=== PATIENT | female | born 1970 | race American Indian/Alaskan Native ===

== ENCOUNTER 2019-07-09 12:04 | Outpatient (CLI) | payer BC ==
--- NOTE | 2019-07-09 14:47 | Mammography Report ---
DIGITAL SCREENING MAMMOGRAM WITH CAD, 07/09/2019 INDICATION: Routine screening mammography. TECHNIQUE: Digital bilateral 2D mammography was obtained in the craniocaudal and mediolateral obliq ue projections. This examination was interpreted with the benefit of Computer-Aided Detection analysi s. COMPARISON: 01/01/2015 FINDINGS: Breast Density: The breasts are heterogeneously dense, which may obscure small masses. Left upper outer circumscribed masses are new and require additional imaging. The largest measures 3 cm on the MLO view. No architectural distortion or suspicious calcifications of the left breast. Ther e is no evidence of dominant mass, suspicious calcifications or architectural distortion in the right breast. IMPRESSION: Left masses requiring additional imaging. Recommend recall for left spot compression view s and targeted left breast ultrasound. Follow up recommendation: Special View: Spot Category 0: Incomplete. Needs additional imaging evaluation and/or prior mammograms for comparison. A "normal" or negative report should not discourage follow up or biopsy of a clinically significant f inding. A written summary of these findings will be mailed to the patient. The patient will be entered into a mammography reporting system which will generate a reminder letter for the patient's next appointmen t at the appropriate interval. The [employer] recommends yearly mammograms starting at age 40 and continuing as l rosmery as a woman is in good health. Breast MRI is recommended for women with an approximate 20-25% or greater lifetime risk of breast cancer, including women with a strong family history of breast or ova padmaja cancer or who have been treated for Hodgkin's disease. Signer Name: Rosendo Hanks MD Signed: 07/09/2019 2:43 PM Workstation Name: [id number]
== END 2019-07-09 12:05 | disposition home or self-care (01) ==
LOC: MAMMO 12:04
PROVIDERS: ATTEND Internal Medicine
DX: Z12.31 Encounter for screening mammogram for malignant neoplasm of breast (principal); N63.21 Unspecified lump in the left breast, upper outer quadrant
CPT/HCPCS: 77067

== ENCOUNTER 2019-07-25 12:49 | Outpatient (CLI) | payer BC ==
--- NOTE | 2019-07-25 14:37 | Ultrasound Report ---
LEFT DIGITAL DIAGNOSTIC MAMMOGRAM WITH CAD 07/25/2019 LEFT COMPLETE BREAST ULTRASOUND INDICATION: Recalled for evaluation of circumscribed masses. ABN MAMMO TECHNIQUE: Digital left mammographic imaging was performed. Spot compression views were obtained. Co mplete ultrasound of all four (4) quadrants was performed. This examination was interpreted with the benefit of Computer-Aided Detection (CAD) analysis. COMPARISON: 07/09/2019 FINDINGS: Breast Density: The breast is heterogeneously dense, which may obscure small masses. MAMMOGRAPHIC FINDINGS: Circumscribed masses persist in the outer breast on spot compression views. ULTRASOUND FINDINGS: Complete sonographic evaluation of all 4 quadrants and retroareolar region was p erformed. Ultrasound of the left breast demonstrated multiple benign cysts. The largest is at 2:00 7 cm from the nipple measuring 2.3 x 2.7 x 1.3 cm. It correlates with the largest mammographic mass. A benign cyst at 2:00 9 cm from the nipple measures 0.7 x 0.6 x 1.1 cm. A benign cyst at 1:00 6 cm fr om the nipple measures 1.6 x 1.0 x 1.0 cm. No solid mass or shadowing. IMPRESSION: Benign cysts left breast. Follow up recommendation: Routine yearly BI-RADS Category 2: Benign. A "normal" or negative report should not discourage follow up or biopsy of a clinically significant f inding. A written summary of these findings will be mailed to the patient. The patient will be entered into a mammography reporting system which will generate a reminder letter for the patient's next appointmen t at the appropriate interval. According to the [employer], yearly mammograms are recommended starting at age 40 and continuing as long as a woman is in good health. Breast MRI is recommended for women with an eulalia roximately 20-25% or greater lifetime risk of breast cancer, including women with a strong family his tory of breast or ovarian cancer and women who have been treated for Hodgkin's disease. Signer Name: Rosendo Hanks MD Signed: 07/25/2019 2:33 PM Workstation Name: [id number]
== END 2019-07-25 12:50 | disposition home or self-care (01) ==
LOC: MAMMO 12:49
PROVIDERS: ATTEND Internal Medicine
DX: N60.02 Solitary cyst of left breast (principal)

== ENCOUNTER 2020-08-05 07:55 | Outpatient (CLI) | payer BC ==
[2020-08-05 09:18] LABS: Blood Urea Nitrogen 20 mg/dL (7-17)
--- NOTE | 2020-08-05 10:13 | Cat Scan Report ---
CT PELVIS WITH CONTRAST HISTORY: Pelvic mass TECHNIQUE: Helical CT was performed following 100 cc of Omnipaque 300 intravenously. Sagittal and cor onal reformatted images. All CT scans at this location are performed using CT dose reduction for ALAReena A by means of automated exposure control. COMPARISON: None FINDINGS: The uterus is enlarged and lobulated with numerous fibroids. The uterus measures 12.9 x 9.7 x 10.0 cm. The largest fibroid in the posterior wall measures 7.7 cm. There are approximately 12 add itional fibroids measuring between 1 cm and 4 cm in diameter. Most of the fibroids mildly enhance. No calcific degeneration is appreciated. The endometrial stripe is not clearly identified secondary to the fibroid disease but does not appear to be thickened. The adnexa and bladder are unremarkable. There is moderate diverticulosis of the visualized colon. Normal appendix. The bladder is empty but u nremarkable. No evidence for adenopathy, free fluid, free air or inflammatory changes. The vascular structures and bony structures are unremarkable. IMPRESSION: Moderate to severe uterine fibroid disease as described above. Signer Name: Steven Siu Jr, MD Signed: 08/05/2020 10:09 AM Workstation Name: [id number]
== END 2020-08-05 07:56 | disposition home or self-care (01) ==
LOC: CT 07:55
PROVIDERS: ATTEND Obstetrics & Gynecology
DX: D25.9 Leiomyoma of uterus, unspecified (principal); K57.30 Diverticulosis of large intestine without perforation or abscess without bleeding; R19.07 Generalized intra-abdominal and pelvic swelling, mass and lump
CPT/HCPCS: 36415; 72193; 82565; 84520; Q9967

== ENCOUNTER 2020-08-26 09:42 | Outpatient (CLI) | payer BC ==
--- NOTE | 2020-08-26 10:47 | Mammography Report ---
DIGITAL SCREENING MAMMOGRAM WITH CAD, 08/26/2020 CLINICAL INFORMATION / INDICATION: Routine screening mammography. SCREENING MAMMO TECHNIQUE: Digital bilateral 2D mammography was obtained in the craniocaudal and mediolateral obliqu e projections. This examination was interpreted with the benefit of Computer-Aided Detection analysis . COMPARISON: 07/09/2019 FINDINGS: Breast Density: The breasts are heterogeneously dense, which may obscure small masses. No dominant mass, suspicious calcifications, or architectural distortion in either breast. Extensive nodularity most notably in the left breast again noted with a scar also in the left breast. Findings appear largely similar to the previous exam. IMPRESSION: No mammographic evidence of malignancy. Follow up recommendation: Routine yearly BI-RADS Category 2: Benign. A "normal" or negative report should not discourage follow up or biopsy of a clinically significant f inding. A written summary of these findings will be mailed to the patient. The patient will be entered into a mammography reporting system which will generate a reminder letter for the patient's next appointmen t at the appropriate interval. The [employer] recommends yearly mammograms starting at age 40 and continuing as l rosmery as a woman is in good health. Breast MRI is recommended for women with an approximate 20-25% or greater lifetime risk of breast cancer, including women with a strong family history of breast or ova padmaja cancer or who have been treated for Hodgkin's disease. Signer Name: Donald Melendez MD Signed: 08/26/2020 10:43 AM Workstation Name: [id number]
== END 2020-08-26 09:43 | disposition home or self-care (01) ==
LOC: SPVWC 09:42
PROVIDERS: ATTEND Surgery
DX: Z12.31 Encounter for screening mammogram for malignant neoplasm of breast (principal)
CPT/HCPCS: 77067

== ENCOUNTER 2020-09-11 08:07 | Outpatient (CLI) | payer BC ==
--- NOTE | 2020-09-11 10:13 | Ultrasound Report ---
Ultrasound-guided left breast cyst aspiration HISTORY: LUMP IN LEFT BREAST. COMPARISON: Mammogram from 08/26/2020 and previous ultrasound from 07/25/2019 PROCEDURE: The risks (including but not limited to bleeding and infection) and benefits were explain ed to the patient and informed consent was obtained. A time out procedure was performed. The proced ure site was prepped and draped in the usual sterile fashion and lidocaine was used for local anesthe haylie. Under direct ultrasound guidance, a 3.2 cm cyst along the outer left breast was targeted for aspirati on. A 16-gauge needle was advanced into the cyst and the cyst was completely collapsed. I aspirated a total of 8 mL of thin slightly cloudy yellow tinted fluid. Fluid was placed in a sterile cup and sen t to the lab for cytology evaluation. The patient tolerated the procedure well with no complications. IMPRESSION: Successful complete aspiration of the 3.2 cm left breast cyst. Signer Name: Donald Melendez MD Signed: 09/11/2020 10:08 AM Workstation Name: [id number]
== END 2020-09-11 08:08 | disposition home or self-care (01) ==
LOC: US 08:07
PROVIDERS: ATTEND Surgery
DX: N60.02 Solitary cyst of left breast (principal); N63.20 Unspecified lump in the left breast, unspecified quadrant
CPT/HCPCS: 76942

== ENCOUNTER 2020-10-07 06:20 | Observation (INO) | payer BC ==
--- NOTE | 2020-10-02 13:32 | Anesthesia Consultation ---
Anesthesia Consult and Med Hx Date of service: 10/07/20 - Airway Anesthetic Teeth Evaluation: Caps ROM Head & Neck: Adequate Mental/Hyoid Distance: Adequate Mallampati Class: Class II Intubation Access Assessment: Good - Pre-Operative Health Status ASA Pre-Surgery Classification: ASA3 Proposed Anesthetic Plan: General Nerve Block: TAP - Pulmonary Hx Smoking: Yes (Former) Hx Respiratory Symptoms: No (+2FS) - Cardiovascular System Hx Hypertension: Yes (+Cardiac clearance) - Central Nervous System Hx Back Pain: Yes (HNP-gets epidurals) Hx Psychiatric Problems: No - Gastrointestinal Hx Gastroesophageal Reflux Disease: Yes (IBS/diverticulosis; Was just hospitalized for diverticulitis) - Endocrine Hx Non-Insulin Dependent Diabetes: Yes (Diet-controlled) - Hematic Hx Sickle Cell Disease: No - Other Systems Hx Alcohol Use: Yes (Occas) Hx Cancer: No Hx Obesity: Yes - Additional Comments Anesthesia Medical History Comments: States she had awareness during BTL surgery
[2020-10-02 14:18] LABS: Hematocrit 33.9 % (30.3-42.9); Hemoglobin 11.3 gm/dl (10.1-14.3); Mean Corpuscular HGB Conc 33 % (30-34); Mean Corpuscular Volume 88 fl (79-97); Platelet Count 429 K/mm3 (140-440); Red Blood Count 3.87 M/mm3 (3.65-5.03)
[2020-10-02 14:41] LABS: BUN/Creatinine Ratio 10; Blood Urea Nitrogen 9 mg/dL (7-17); Calcium 8.9 mg/dL (8.4-10.2); Hemolysis Index 4
--- NOTE | 2020-10-02 14:44 | History and Physical Report ---
History of Present Illness Date of examination: 10/02/20 Chief complaint: This is a 49 year-old female with menorrhagia, pelvic pain and uterine fibroids who presents for definitive therapy in the form of hysterectomy and any other indicated procedures. History of present illness: Past History : 5 Term Births: 4 Living Children: 4 Aborta: 1 Elect. Ab: 1 # 1 Delivery date: 08/27/1988 Weeks Gestation: 40 Delivery type: Infant Sex: Male weight: 7'12 Comments: FD # 2 Delivery date: 08/08/1990 Weeks Gestation: 40 Delivery type: Sex: Male weight: 7'15 Comments: glucose issues # 3 Delivery date: 06/17/1993 Weeks Gestation: 42 Delivery type: Infant Sex: Male weight: 6'14 Comments: glucose issues # 4 Delivery date: 10/20/1997 Weeks Gestation: 40 Delivery type: Infant Sex: Female weight: 8'15 Comments: glucose issues [employer] History Operations: umbilical hernia repair cyst removed from the mons. not sure why. incision was left open (2008) colonoscopy 2013. for IBS and diverticulosis(2019) diverticulitis Tubal Ligation (1997) Abnormal PAP: positive Infection History HIV Risk Eval: no Personal hx. of genital herpes: yes Hx of STD: HSV Active Medications (reviewed today): VITAMIN D3 125 MCG (5000 UT) ORAL CAPSULE (CHOLECALCIFEROL) METRONIDAZOLE 500 MG ORAL TABLET (METRONIDAZOLE) 1 po bid AMOXICILLIN 500 MG ORAL CAPSULE (AMOXICILLIN) 1 po q 8hrs MIRALAX 17 GM ORAL PACKET (POLYETHYLENE GLYCOL 3350) PROTONIX 40 MG ORAL TABLET DELAYED RELEASE (PANTOPRAZOLE SODIUM) ACETAMINOPHEN-CODEINE TABLET (ACETAMINOPHEN-CODEINE TABS) AMLODIPINE BESYLATE TABLET (AMLODIPINE BESYLATE TABS) Current Allergies (reviewed today): LATEX GLOVES (DISPOSABLE GLOVES) (Critical) Past Medical History: Herniated lumbar disc receives epidurals twice year diverticulitis/divericulosis hx of hsv oral. IBS Diabetes diet controlled Hyperlipidemia Hypertension Vitamin D deficiency Past Surgical History: Reviewed history from 08/22/2020 and no changes required: umbilical hernia repair cyst removed from the mons. not sure why. incision was left open (2008) colonoscopy 2013. for IBS and diverticulosis(2019) diverticulitis(09/28/2020) Tubal Ligation (1997) Family History Summary: Reviewed history Last on 06/20/2020 and no changes required:10/02/2020 Other Family Member - Has No Family History of Uterine Cancer - Entered On: 08/28/2020 Other Family Member - Has No Family History of Small Bowel Cancer - Entered On: 08/28/2020 Other Family Member - Has No Family History of Stomach Cancer - Entered On: 08/28/2020 Other Family Member - Has No Family History of Pancreatic Cancer - Entered On: 08/28/2020 Other Family Member - Has No Family History of Ovarvian Cancer - Entered On: 08/28/2020 Other Family Member - Has No Family History of Kidney/Urinary Tract Cancer - Entered On: 08/28/2020 Other Family Member - Has No Family History of Spontaneous DVT-PE - Entered On: 08/28/2020 Other Family Member - Has No Family History of Colon Cancer - Entered On: 08/28/2020 Other Family Member - Has No Family History of Brain Cancer - Entered On: 08/28/2020 Other Family Member - Has No Family History of Breast Cancer - Entered On: 08/28/2020 Other Family Member - Has No Family History of Biliary Tract Cancer - Entered On: 08/28/2020 General Comments - FH: mother Hodgkins Family History of Diabetes mother and father, t2dm Family History of Hyperlipidemia Family History of Coronary Heart Disease sister age 51 mi son has epilepsy. multiple seizures age 19. Social History: Reviewed history from 06/20/2020 and no changes required: Patient is Smoking History: Patient has never smoked. Risk Factors: Smoked Tobacco Use: Never smoker Smokeless Tobacco Use: Never Drug use: no HIV high-risk behavior: no Alcohol use: yes Exercise: no Seatbelt use: 100 % Previous Tobacco Use: Signed On - 08/22/2020 Smoked Tobacco Use: Never smoker Smokeless Tobacco Use: Never Drug use: no HIV high-risk behavior: no Previous Alcohol Use: Signed On 08/22/2020 Alcohol use: yes Type: occ Drinks per day: social Exercise: no Seatbelt use: 100 % Family History Risk Factors: Family History of IA in females < 65 years old: yes Colonoscopy History: Date of Last Colonoscopy: 05/16/2020 Mammogram History: Date of Last Mammogram: 08/16/2019 PAP Smear History: Date of Last PAP Smear: 08/07/2019 Physical Exam Appearance: well developed, well nourished, no acute distress Other Exams Lungs: no rales, rhonchi, or wheezes Heart: S1, S2, no murmur, rub, or gallop Abdomen: soft, non-tender, no masses Genitourinary Exam Uterus: deferred for EUA Impression & Recommendations: Problem # 1: Menorrhagia (ICD-626.2) (RRW31-J75.0) Diagnosis explained to patient . Questions answered. Discussed with patient various medical and surgical therapies common for treatment: Hormonal/medical therapy or hysterectomy. She desire to proceed with hysterectomy Diagnosis explained to patient . Discussed with patient various medical, surgical and radiological therapies common for treatment including, but not limited to, myomectomy, hysterectomy and uterine artery embolization. Discussed risks and benefits of laparotomy, laparoscopy, vaginal and robotic assisted approaches for hysterectomies. Patient desires definitive treatment in the form of robot assisted laparoscopic total hysterectomy. The risks and alternatives for this surgery were reviewed with the patient. She was informed of the risks of the surgery including, but not limited to, pain, infection, bleeding possibly heavy enough to require a blood transfusion with associated risks of infections (hepatitis and HIV) and transfusion reactions, possible damage to bowel, bladder or ureter(s) and surrounding organs. . Patient understands that this surgery will make her sterile. Indications to abort a robotic/laparoscopic procedure and perform an open procedure were explained. She desires ovarian conservation. She was informed she may require surgery later to have her ovaries removed for a benign or mailgnant condition. Patient understands if her ovaries are removed she will become menopausal. Patient advised the small risks of spreading of malignancy if morcellation is required during the surgery patient understands and approves performing if necessary. Questions answered. Consent reviewed and signed The patient was instructed/informed the following: The normal length of hospital stay for this procedure. Nothing to eat or drink after midnight the evening prior to surgery. Clear liquids the day before surgery. Pre-op instruction sheets given. Wound care instructions given. Problem # 2: Fibroids of uterus; Intramural (ICD-218.1) (OQU71-I01.1) Diagnosis explained to patient . Questions answered. Discussed with patient michelle ious medical, surgical and radioloigal therapies common for treatment: Hormonal/medical therapy, fibroid embolization, removal of fibroids or hysterectomy Her updated medication list for this problem includes: Metronidazole 500 Mg Oral Tablet (Metronidazole) ..... 1 po bid Ibgard 90 Mg Oral Capsule Extended Release (Peppermint oil) Amoxicillin 500 Mg Oral Capsule (Amoxicillin) ..... 1 po q 8hrs Acetaminophen-codeine Tablet (Acetaminophen-codeine tabs Problem # 3: Pelvic and perineal pain (ICD-789.00) (ENW29-J94.2) It was extensively explained to her that her pain may persist, recur or change in nature due to the difficulty with diagnosis chronic pelvic pain or development of adhesions. She declined other treatment options at this time. Her updated medication list for this problem includes: Metronidazole 500 Mg Oral Tablet (Metronidazole) ..... 1 po bid Amoxicillin 500 Mg Oral Capsule (Amoxicillin) ..... 1 po q 8hrs Acetaminophen-codeine Tablet (Acetaminophen-codeine tabs) Medications Added to Medication List This Visit: 1) Vitamin D3 125 Mcg (5000 Ut) Oral Capsule (Cholecalciferol) 2) Metronidazole 500 Mg Oral Tablet (Metronidazole) .... 1 po bid 3) Vitamin D (cholecalciferol) 25 Mcg (1000 Ut) Oral Capsule (Cholecalciferol) 4) Ibgard 90 Mg Oral Capsule Extended Release (Peppermint oil) 5) Align Capsule (Probiotic product caps) 6) Amoxicillin 500 Mg Oral Capsule (Amoxicillin) .... 1 po q 8hrs 7) Pravastatin Sodium Tablet (Pravastatin sodium tabs) ] Medications and Allergies Allergies Allergy/AdvReac Type Severity Reaction Status Date / Time latex Allergy Rash, Verified 10/01/20 16:16 irritation Active Meds: Active Medications Acetaminophen (Acetaminophen 500 Mg Tab) 1,000 mg PO ONCE NR Stop: 10/07/20 20:00 Celecoxib (Celecoxib 200 Mg Cap) 400 mg PO PREOP NR Stop: 10/07/20 20:00 Fentanyl (Fentanyl 100 Mcg/2 Ml Inj) 100 mcg IV ONCE NR Stop: 10/07/20 20:00 Gabapentin (Gabapentin 300 Mg Cap) 600 mg PO PREOP NR Stop: 10/07/20 23:00 Lactated Ringer's (Lactated Ringers) 1,000 mls @ 125 mls/hr IV DIRECT VADIM Cefazolin Sodium (Ancef/Sterile Water 2 Gm/20 Ml) 2 gm in 20 mls @ 80 mls/hr IV PREOP NR; Protocol Stop: 10/07/20 20:00 Magnesium Oxide (Magnesium Oxide 400 Mg Tab) 400 mg PO ONCE NR Stop: 10/07/20 22:00 Midazolam HCl (Midazolam 2 Mg/2 Ml Inj) 2 mg IV PREOP NR Stop: 10/07/20 23:59 Assessment and Plan - Patient Problems (1) Menorrhagia Status: Acute (2) Fibroids Status: Acute (3) Pelvic pain Status: Acute (4) Hypertension Status: Chronic (5) Hyperlipidemia Status: Chronic (6) Vitamin D deficiency Status: Chronic (7) Diverticulosis Status: Chronic (8) Diabetes Status: Chronic (9) Lumbar herniated disc Status: Chronic
[2020-10-02 16:00] LABS: RBC Morphology Normal; Total Cells Counted 100
[~2020-10-07 06:20] MED LIST: ACETAMINOPHEN 500 MG TAB PO NR; CELECOXIB 200 MG CAP PO NR; GABAPENTIN 300 MG CAP PO NR; MAGNESIUM OXIDE 400 MG TAB PO NR; ceFAZolin/Water 2 GM/20 ML 2 GM/20 ML SYRINGE IV NR; fentaNYL 100 MCG/2 ML INJ IV NR
[2020-10-07] MEDS: LACTATED RINGERS 1,000 ML IV SCH ×2 (06:50→13:20)
[2020-10-07] MEDS ORDERED: metroNIDAZOLE/NS 500 MG/100 ML 500 MG/100 ML BAG IV NR (07:00)
[2020-10-07] MEDS ORDERED: BUPIVACAINE/PF (0.25%) 2.5 MG/ML 30 ML VIAL INFILTRATI ONE (07:08)
--- NOTE | 2020-10-07 07:08 | Anesthesia Day of Surgery ---
Anesthesia Day of Surgery - Day of Surgery Patient Examined: Yes Patient H&P Reviewed: Yes Patient is NPO: Yes
[2020-10-07] MEDS ORDERED: propofoL 200 MG/20 ML VIAL IV ONE (07:12)
[2020-10-07] MEDS ORDERED: ROCURONIUM 50 MG/5 ML INJ IV ONE (07:12)
[2020-10-07] MEDS ORDERED: LIDOCAINE PF 100 MG/5 ML (CARDIAC SYRINGE) IV ONE (07:12)
[2020-10-07] MEDS ORDERED: NEOMY 40 MG/POLYMYXIN B 200,000 UNITS/ML (GU) AMPULE IR ONE ×2 (07:13→08:40)
[2020-10-07] MEDS: MIDAZOLAM 2 MG/2 ML INJ IV NR ×2 (07:14→07:19)
[2020-10-07] MEDS ORDERED: fentaNYL 100 MCG/2 ML INJ ONE (07:15)
[2020-10-07] MEDS ORDERED: CALCIUM CHLORIDE 1,000 MG/10 ML SYRINGE IV ONE (07:18)
[2020-10-07] MEDS ORDERED: THROMBIN (RECOMBINANT) 5,000 UNIT VIAL TP ONE (07:18)
[2020-10-07] MEDS ORDERED: MIDAZOLAM 2 MG/2 ML INJ IV SCH (07:20)
[2020-10-07] MEDS ORDERED: HYDROmorphone 1 MG/1 ML INJ IV PRN (07:30)
[2020-10-07] MEDS ORDERED: ONDANSETRON 4 MG/2 ML INJ IV PRN ×2 (07:30→12:53)
[2020-10-07] MEDS ORDERED: ONDANSETRON 4 MG/2 ML INJ ONE (08:38)
[2020-10-07] MEDS ORDERED: dexAMETHasone 20 MG/5 ML VIAL ONE (08:38)
[2020-10-07] MEDS ORDERED: SODIUM CHLORIDE 0.9% IRRIG SOLN 2000 ML IR ONE (08:40)
[2020-10-07] MEDS ORDERED: ePHEDrine SULFATE 50 MG/1 ML INJ ONE (08:43)
[2020-10-07] MEDS ORDERED: LACTATED RINGERS 1,000 ML ONE (09:02)
[2020-10-07] MEDS ORDERED: GLYCOPYRROLATE 0.4 MG/2 ML INJ ONE (09:54)
[2020-10-07] MEDS ORDERED: KETOROLAC 30 MG/1 ML INJ ONE (09:54)
[2020-10-07] MEDS ORDERED: NEOSTIGMINE 10MG/10 ML INJ MDV ONE (09:54)
[2020-10-07] MEDS ORDERED: PHENYLEPHRINE/NS 1,000 MCG/10 ML SYRINGE (OR USE) IV ONE (10:00)
[2020-10-07] MEDS: HYDROmorphone 1 MG/1 ML INJ IV PRN ×4 (10:40→12:05)
--- NOTE | 2020-10-07 12:26 | Operative Report ---
Operative Report Operative Report: Date: 10/07/2020 Preoperative diagnosis: 1. Menorrhagia 2. Uterine fibroid 3. Body mass index of 38.7 kg/m 4. Pelvic pain Postoperative diagnosis: 1. Menorrhagia 2. Uterine fibroid 3. Body mass index of 38.7 kg/m 4. Pelvic pain Procedure: 1. Robotic-assisted laparoscopic total hysterectomy with bilateral salpingectomy Surgeon: Eleanor Aguilar MD Pilot: Alayna Lopez Anesthesiologist: Dr. Howe Anesthesia: General endotracheal anesthesia EBL: Approximately 100 mL Findings: EUA: Uterus palpated to approximately 15 weeks. Uterus was sounded to 12 cm. Grossly normal tubes and ovaries. Left ovary was adhered to the posterior aspect of the uterus. Procedure: Patient was taken to the OR and placed in the supine position. General anesthesia was induced and an oral gastric tube was placed. Her neck and head were placed on foam support. Foam eye protection with goggles were secured in place. Then foam face protection was placed and secured. Foam shoulder pads were then positioned on her shoulders for Trendelenburg positi oning. She was then placed in dorsolithotomy position. Exam under anesthesia as above. The abdomen and vagina were then prepped and draped in the usual sterile fashion. Timeout was performed. A Kirkland catheter was inserted into the bladder with drainage of clear yellow urine. The operative speculum was introduced into the vagina and the anterior lip of the cervix was grasped with single-toothed tenaculum. The uterus was sounded to 12 cm. The cervix was progressively dilated to allow the large V care uterine manipulator. The bulb of the manipulator was inflated and the speculum and tenaculum were removed. The cup of the manipulator was placed around the cervix and the blue occluder of the manipulator was properly positioned in the vagina and secured. A laparotomy sponge that was saturated with a solution of polymyxin and saline was placed in the vagina to ensure pneumoperitoneum. Sterile gloves were placed and attention was turned to the abdomen. A 10 mm midline vertical supraumbilical incision was made approximately 10 cm superior to the elevated fundus of the uterus. A 10-12 mm trocar with the laparoscope and camera attached was introduced through this incision under direct visualization. The abdomen was insufflated. No obvious bowel, bladder, ureteral, or major vascular injury was noted. The patient was then placed in steep Trendelenburg position and the following trochars were placed under direct visualization: 8 mm robotic trochars were placed through incisions made in the bilateral midclavicular lower abdominal region approximately 10 cm lateral to the midline incision, and a 5 mm trocar was placed through an incision made in the right lower lateral pelvis. The 10 mm laparoscope was then replaced by a 5 mm laparoscope that was placed through the 5 millimeter lateral trocar. The 12 mm trocar was then removed and the Willem Tate fascial closure device was placed through the incision and a 0 Vicryl was placed through the fascia. Once the suture was secured the 12 mm trocar was reintroduced. Once the trochars were in the appropriate positions, the da Erik robot system was engaged. The EndoShears and bipolar device was placed through the 8 mm trochars and positioned then attention was turned to the console. The uterus was elevated and bilateral salpingectomy was performed. Each tube was removed through the 5 mm trocar and sent to pathology in separate containers. The left ovary was gently released from the anterior fundal lateral aspect of the uterus. Then the utero-ovarian ligaments were clamped. cauterized and incised bilaterally using 30 W of energy. Then the round ligaments were clamped, cauterized and incised bilaterally. The anterior leaf of the broad ligament was elevated and with careful blunt and sharp dissection the bladder flap was created and dissected away from the lower uterine segment and cervix. The posterior leaf of the broad ligament was dissected away from the uterine vessels. The cup of the uterine manipulator was palpated both anteriorly and posteriorly. The bladder was further dissected away from the lower uterine segment. The uterine vessels were then clamped and cauterized bilaterally. Blanching of the uterus was then noted. Attention was again turned to the anterior lower uterine segment and the bladder was confirmed to be away from the operative field. Then attention was turned again to the posterior where the cup of the manipulator was palpated and a colpotomy was performed down to the cup. The incision was extended in the lateral position to the uterine vessels that were again clamped and cauterized and incised. Continuing along the cup of the manipulator in a circumferential manner the colpotomy was completed. Once the uterus cervix were released, the large posterior fibroid was removed to assist with removing the virus from the vagina. The uterus,cervix and fibroid were then removed through the vaginal incision. The pelvis was irrigated with warm normal saline. A moist laparotomy sponge was placed in the vagina to maintain pneumoperitoneum. The vagina cuff was reapproximated using V LOC 180 suture. Then a J stitch was performed to secure the suture. Again the pelvis was copiously irrigated with polymixin in warm normal saline. The laparotomy sponge was removed from the vagina. No obvious evidence of bowel, bladder, ureteral, or major vascular injury was noted. Winston was applied to ensure hemostasis.. Then the instruments were removed, the robot was disengaged. The 12 mm trocar was removed and the fascia was ligated with the 0 Vicryl suture that was placed at the beginning of the procedure. The patient was taken out of Trendelenburg position, the abdomen was desufflated, the remaining trochars were removed. Incisions were reapproximated using 4-0 Monocryl in a subcuticular manner. Surgiseal was placed over the other incisions. The vagina was then inspected, the cuff was palpated to be intact and no bleeding was noted and clear yellow urine was draining into the Kirkland bag from the bladder at the end of the procedure. Counts were correct 3. Patient was taken to recovery room in stable condition.
[2020-10-07] MEDS ORDERED: ONDANSETRON 4 MG ODT TAB PO PRN (12:53)
[2020-10-07] MEDS ORDERED: MORPHINE 2 MG/1 ML INJ IV PRN (12:53)
[2020-10-07] MEDS ORDERED: HYDROcodone/ACETAMINOPHEN 5-325 MG TAB PO PRN (12:53)
[2020-10-07] MEDS ORDERED: METOCLOPRAMIDE 10 MG/2 ML INJ IV PRN (12:53)
[2020-10-07] MEDS ORDERED: DEXTROSE 50% IN WATER (25GM) 50 ML SYRINGE IV PRN (13:00)
--- NOTE | 2020-10-07 14:06 | Post Anesthesia Evaluation ---
- Post Anesthesia Evaluation Patient Participated: Yes Airway Patent: Yes Stable Respiratory Function: Yes Nausea/Vomiting: No Temp > 96.8F: Yes Pain Manageable: Yes (Pt was having preoperative diverticul. pain) Adequeate Hydration: Yes Anesthesia Complications: No Block Receding Appropriately: Yes Patient on Ventilator: No Other Comments: Loose tooth intact
[2020-10-07] MEDS: ACETAMINOPHEN 325 MG TAB PO SCH ×2 (14:48→21:57)
[2020-10-07] MEDS: amLODIPine 5 MG TAB PO SCH (14:49)
[2020-10-07] MEDS: ceFAZolin/NS 1 GM/50 ML 1 GM/50 ML BAG IV SCH ×2 (15:00→21:54)
[2020-10-07] MEDS: KETOROLAC 30 MG/1 ML INJ IV SCH ×2 (15:53→21:56)
[2020-10-07] MEDS: INSULIN REGULAR, HUMAN 100 UNITS/1 ML SUB-Q SCH ×2 (17:30→22:07)
--- NOTE | 2020-10-07 18:46 | Progress Note ---
Assessment and Plan Patient resting in bed, no complaints. Clear yellow urine draining into catheter. Operative findings and procedure explained. Post op plan of care discussed. Questions were encouraged and answered. She voiced understanding and agrees with POC - Patient Problems (1) History of robot-assisted laparoscopic hysterectomy Current Visit: Yes Status: Acute (2) Menorrhagia Current Visit: No Status: Resolved (3) Fibroids Current Visit: No Status: Resolved (4) Pelvic pain Current Visit: No Status: Resolved (5) Hypertension Current Visit: No Status: Chronic (6) Hyperlipidemia Current Visit: No Status: Chronic (7) Vitamin D deficiency Current Visit: No Status: Chronic (8) Diverticulosis Current Visit: No Status: Chronic (9) Diabetes Current Visit: No Status: Chronic (10) Lumbar herniated disc Current Visit: No Status: Chronic Subjective Date of service: 10/07/20 Patient Reports: Positive: no new complaints Objective Vital Signs - 12hr 10/07/20 10/07/20 10/07/20 07:13 07:18 07:23 Temperature Pulse Rate 81 74 76 Respiratory 16 17 14 Rate Blood Pressure 132/78 138/81 144/82 O2 Sat by Pulse 100 100 100 Oximetry 10/07/20 10/07/20 10/07/20 07:28 10:20 10:25 Temperature 97.2 F L Pulse Rate 75 86 76 Respiratory 16 27 H 18 Rate Blood Pressure 142/78 136/78 121/75 O2 Sat by Pulse 100 100 100 Oximetry 10/07/20 10/07/20 10/07/20 10:30 10:35 10:40 Temperature Pulse Rate 80 71 Respiratory 20 18 16 Rate Blood Pressure 124/74 136/74 O2 Sat by Pulse 100 100 Oximetry 10/07/20 10/07/20 10/07/20 10:50 10:51 10:52 Temperature 98.1 F Pulse Rate 70 Respiratory 16 17 22 Rate Blood Pressure 152/81 O2 Sat by Pulse 100 Oximetry 10/07/20 10/07/20 10/07/20 11:12 12:05 12:25 Temperature Pulse Rate Respiratory 15 16 16 Rate Blood Pressure O2 Sat by Pulse Oximetry 10/07/20 10/07/20 10/07/20 13:06 14:49 16:05 Temperature 97.5 F L 97.7 F Pulse Rate 65 65 82 Respiratory 18 18 Rate Blood Pressure 141/76 141/76 123/70 O2 Sat by Pulse 100 99 Oximetry - General physical appearance no distress - Respiratory normal expansion, normal respiratory effort, clear to auscultation - Abdomen soft, bowel sounds normal, surgical scars (C/D/I) - Psychiatric oriented to time, oriented to person, oriented to place, speech is normal, memory intact - Labs 10/02/20 13:00 10/02/20 06:00
[2020-10-07] MEDS: FAMOTIDINE 20 MG/2 ML INJ IV SCH (21:56)
[2020-10-07] MEDS ORDERED: PRAVASTATIN 40 MG TAB PO SCH (22:00)
[2020-10-07] MEDS: metroNIDAZOLE/NS 500 MG/100 ML 500 MG/100 ML BAG IV SCH (22:51)
[2020-10-08] MEDS: ACETAMINOPHEN 325 MG TAB PO SCH ×2 (00:55→06:37)
[2020-10-08] MEDS: INSULIN REGULAR, HUMAN 100 UNITS/1 ML SUB-Q SCH ×3 (00:55→11:53)
[2020-10-08] MEDS: LACTATED RINGERS 1,000 ML IV SCH ×2 (02:36→09:13)
[2020-10-08 04:14] LABS: Hematocrit 27.1 % (30.3-42.9)
[2020-10-08 04:34] LABS: BUN/Creatinine Ratio 9; Blood Urea Nitrogen 7 mg/dL (7-17); Hemolysis Index 0
[2020-10-08] MEDS: KETOROLAC 30 MG/1 ML INJ IV SCH (05:51)
[2020-10-08] MEDS: FAMOTIDINE 20 MG/2 ML INJ IV SCH (08:44)
[2020-10-08] MEDS: amLODIPine 5 MG TAB PO SCH (09:05)
--- NOTE | 2020-10-08 09:42 | Discharge Summary ---
Providers - Providers Date of Admission: 10/07/20 11:30 Date of discharge: 10/08/20 Attending physician: PINKY RODRIGUEZ Primary care physician: PAULINE MONTOYA Hospitalization Condition: Good Procedures: RALTH, (B) salpingectomy Hospital course: This is a 49-year-old female status post robotic assisted laparoscopic total hysterectomy with bilateral salpingectomy. Postoperative course has been unremarkable. She is discharged home at this time. Disposition: DC- TO HOME OR SELFCARE Final Discharge Diagnosis (Prints w/discharge instructions): s/p hysterectomy with bilateral salpingectomy - Discharge Diagnoses (1) History of robot-assisted laparoscopic hysterectomy Status: Acute (2) Menorrhagia Status: Resolved (3) Fibroids Status: Resolved (4) Pelvic pain Status: Resolved (5) Hypertension Status: Chronic (6) Hyperlipidemia Status: Chronic (7) Vitamin D deficiency Status: Chronic (8) Diverticulosis Status: Chronic (9) Diabetes Status: Chronic (10) Lumbar herniated disc Status: Chronic Core Measure Documentation - Palliative Care Palliative Care/ Comfort Measures: Not Applicable - Core Measures Any of the following diagnoses?: none Exam - Constitutional Vitals: Temp Pulse Resp BP Pulse Ox 98.0 F 62 12 115/60 100 10/08/20 07:30 10/08/20 09:05 10/08/20 07:30 10/08/20 09:05 10/08/20 07:30 General appearance: Present: no acute distress - Neck Neck: Present: supple - Respiratory Respiratory effort: normal Respiratory: bilateral: CTA - Cardiovascular Rhythm: regular - Extremities Extremities: no ischemia, No edema - Abdominal General gastrointestinal: Present: soft, non-tender, non-distended, normal bowel sounds Female genitourinary: Present: deferred - Integumentary Integumentary: Present: clear, warm, dry (Incisions:C/D/I) - Psychiatric Psychiatric: appropriate mood/affect, intact judgment & insight, memory intact, cooperative Plan Activity: other (No sex and no driving. Ambulate approximately [place] her property daily. Void frequently to avoid pressure on the vaginal cuff. Use your incentive spirometer every hour while awake.) Weight Bearing Status: Full Weight Bearing Diet: low fat, low cholesterol, low salt, diabetic (Eat small meals frequently. Drink approximately 90 ounces of water a day.) Wound: open to air, keep clean and dry Special Instructions: no heavy lifting (Greater than 15 pounds) Follow up with: PAULINE MONTOYA MD [Primary Care Provider] - 7 Days PINKY RODRIGUEZ MD [Staff Physician] - (As scheduled) Prescriptions: Ferrous Sulfate [Ferrous Sulfate 324 MG] 324 mg PO DAILY #30 tablet. Ibuprofen [Motrin 800 MG tab] 800 mg PO Q8H PRN #30 tablet PRN Reason: Pain, Mild (1-3) HYDROcodone/APAP 5-325 [Minerva 5-325 mg TAB] 1 each PO Q6H PRN #10 tablet PRN Reason: Pain, Moderate (4-6)
[2020-10-08] MEDS ORDERED: amLODIPine 5 MG TAB PO SCH (10:00)
[2020-10-08] MEDS ORDERED: IBUPROFEN 800 MG TAB PO PRN (10:00)
[2020-10-08] MEDS: metroNIDAZOLE/NS 500 MG/100 ML 500 MG/100 ML BAG IV SCH (10:30)
[2020-10-08] MEDS ORDERED: oxyCODONE /ACETAMINOPHEN 5-325MG TAB PO PRN (10:41)
[2020-10-08 13:09] VITALS: BP 115/57
== END 2020-10-08 16:10 | disposition home or self-care (01) ==
LOC: OR 06:20 → 3B-SURG 11:30 → INTOOBSV 11:30
PROVIDERS: ADMIT Obstetrics & Gynecology; ATTEND Obstetrics & Gynecology
DX: N92.0 Excessive and frequent menstruation with regular cycle (principal); Z20.822 Contact with and (suspected) exposure to COVID-19; D25.9 Leiomyoma of uterus, unspecified; R10.9 Unspecified abdominal pain; I10 Essential (primary) hypertension; E78.5 Hyperlipidemia, unspecified; E55.9 Vitamin D deficiency, unspecified; K57.90 Diverticulosis of intestine, part unspecified, without perforation or abscess without bleeding; E11.9 Type 2 diabetes mellitus without complications; M51.26 Other intervertebral disc displacement, lumbar region; Z98.890 Other specified postprocedural states; Z98.891 History of uterine scar from previous surgery; Z98.51 Tubal ligation status
CPT/HCPCS: 36415; 58573; 64450; 80048; 81025; 82962; 83036; 85014; 85018; 85025; 86850; 86900; 86901; 88302; 88307; 96365; 96366; 96367; 96372; 96375; 96376; A4217; A9270; G0378; J0690; J1100; J1170; J1885; J2001; J2250; J2270; J2370; J2405; J2704; J2710; J3010; J7120; S2900; U0003; 85007; J1815